=== PATIENT | female | born 1980 | race Caucasian/White ===

== ENCOUNTER 2017-10-14 10:52 | Emergency (ER) | payer OTHER ==
[~2017-10-14] VITALS: Ht 185.4 cm; Wt 85.4 kg
[2017-10-14 13:00] LABS: HEMOGLOBIN 14.8 G/DL (11.9-15.5); MCH 32.5 PG (29.0-34.0); MCHC 34.4 G/DL (30.0-36.0); MCV 94.3 FL (83-99); PLATELET COUNT 301 K/uL (156-360); RBC DIS.WIDTH-CV 11.7 % (11.8-14.6); RBC DIS.WIDTH-SD 40.5 % (39-53); RED BLOOD COUNT 4.56 M/uL (3.80-5.20); WHITE BLOOD COUNT 17.2 K/uL (4.1-10.2)
[2017-10-14 13:08] LABS: CHLORIDE 107 mEq/L (99-109); POTASSIUM 3.8 mEq/L (3.7-5.4); SODIUM 139 mEq/L (136-147)
[2017-10-14 13:09] LABS: GLUCOSE 87 mg/dL (70-99)
[2017-10-14 13:13] LABS: CREATININE 0.7 mg/dL (0.6-1.3); GFR ESTIMATE (CALCULATED) > 59 mL/min/
[2017-10-14 13:14] LABS: UREA NITROGEN (BUN) 9 mg/dL (9-23)
[2017-10-14 13:21] LABS: TROP-I INTERPRETATION NEGATIVE; TROPONIN-I < 0.01 ng/mL (0.0-0.30)
[2017-10-14] MEDS ORDERED: ZITHROMAX250 MG PO (13:41)
[2017-10-14] MEDS ORDERED: PREDNISONE20 MG PO (13:41)
[2017-10-14] MEDS ORDERED: VENTOLIN HFA18 GM IH (13:41)
[2017-10-14 13:55] VITALS: BP 117/70
== END 2017-10-14 13:56 | disposition home or self-care (01) ==
LOC: EME 10:52
PROVIDERS: Nurse Practitioner Family
DX: J40 Bronchitis, not specified as acute or chronic (principal); J02.9 Acute pharyngitis, unspecified; R11.0 Nausea; F17.200 Nicotine dependence, unspecified, uncomplicated
CPT/HCPCS: 71046; 80048; 84484; 85027; 93005; 94640; 99281; 99284; J7512